=== PATIENT | female | born 2000 | race Caucasian/White ===

== ENCOUNTER 2019-12-15 18:26 | Emergency (ER) | payer OTHER, SELFPAY ==
[2019-12-15 18:31] VITALS: BP 133/61; PULSE 83; RESP 14; TEMP 36.9; O2SAT 97
--- NOTE | 2019-12-15 18:37 | ECG_ITS ---
Measurements Intervals [place] Rate: 74 P: 16 MT: 156 QRS: 10 QRSD: 92 T: 24 QT: 385 QTc: 430 Interpretive Statements SINUS RHYTHM WITH SINUS ARRHYTHMIA VOLTAGE CRITERIA FOR LVH BORDERLINE ECG Electronically Signed On 12-15-2019 19:56:48 CDT by Zay Sandoval D.O.
--- NOTE | 2019-12-15 19:09 | ED.DIZZY ---
HPI - Dizziness General Chief Complaint: Dizziness Stated Complaint: dizziness/headache/vomiting Time Seen by Provider: 12/15/19 18:56 History of Present Illness HPI Narrative: Patient is a 19-year-old female who presents to the ER with dizziness. Patient reports she experiences this about twice a year since she was a freshman in high school. Today patient was getting out of the car and walking towards her apartment when she developed extreme dizziness with nausea and sweats. She felt off balance. Typically symptoms only last for a minute but this was much more sustained. She experienced nausea and vomiting. Symptoms have since resolved and she is developed a frontal headache that is moved over her left eye and is throbbing. Patient reports that symptoms typically are followed by headache. No trauma. Denies fever/chills//tinnitus/ear pressure. Reports items in her visual field removing when she was dizzy. Has had a cardiac work-up in the past that was sent unremarkable. Related Data Home Medications Medication Instructions Recorded Confirmed fluoxetine 40 mg PO DAILY 12/15/19 levothyroxine 25 mcg PO DAILY 12/15/19 metformin 500 mg PO BID 12/15/19 Allergies Allergy/AdvReac Type Severity Reaction Status Date / Time Penicillins Allergy Severe Swelling Verified 12/15/19 18:35 Review of Systems Review of Systems: All systems reviewed & are unremarkable except as noted in HPI and below Constitutional: Constitutional: Denies chills and Denies fever(s) Eyes: Eyes: Reports change in vision (Moving in visual field) and Reports photophobia ENT: Reports dizziness, Denies nasal congestion and Denies sore throat Cardiovascular: Cardiovascular: Denies chest pain and Denies rapid heart rate Gastrointestinal: Gastrointestinal: Denies abdominal pain, Reports nausea and Reports vomiting Neurologic: Reports headache(s), Denies focal weakness and Denies numbness PMFSH Past Medical History Medical History (Updated 12/15/19 @ 20:25 by Iam Trent MD) Anxiety Hypothyroidism PCOS (polycystic ovarian syndrome) Surgical History Surgical History (Updated 12/15/19 @ 19:13 by Iam Trent MD) History of tonsillectomy Social History Social History (Updated 12/15/19 @ 19:13 by Iam Trent MD) Smoking status: Never smoker Alcohol intake: never Substance use: never Exam Narrative: Exam Narrative: GENERAL: Well-appearing, well-nourished, and in no acute distress. HEAD: Normocephalic, atraumatic. EYES: PERRL and EOMI. ENT: TMs normal in appearance and no cerumen in the ear canal. Normal external ear. CHEST: Clear to auscultation. No respiratory distress. HEART: Regular rate and rhythm. Normal peripheral pulses. NEURO: No focal deficits. Clear speech. Alert and oriented x3. PSYCH: Normal mood and affect. Course Course Emergency Course: GONZALES resolved with toradol/reglan/benadryl, hydrated. D/c. Vital Signs Vital signs: Vital Signs Temperature 98.5 F 12/15/19 18:31 Pulse Rate 83 12/15/19 18:31 Respiratory Rate 14 12/15/19 18:31 Blood Pressure 133/61 12/15/19 18:31 Pulse Oximetry 97 12/15/19 18:31 Temperature 98.5 F 12/15/19 18:31 Pulse Rate 102 H 12/15/19 19:37 Respiratory Rate 16 12/15/19 19:27 Blood Pressure 137/116 H 12/15/19 19:37 Pulse Oximetry 97 12/15/19 19:27 MDM - Dizziness Lab Data Result diagrams: 12/15/19 19:20 12/15/19 19:20 Labs: Lab Results 12/15/19 12/15/19 Range/Units 19:20 19:20 WBC 12.8 H (4.5-10.0) K/mm3 RBC 5.24 (4.2-5.4) M/mm3 Hgb 12.7 (12.0-15.0) g/dL Hct 40.1 (37.0-47.0) % MCV 76.5 L (80-100) fl MCH 24.2 L (26-34) pg MCHC 31.7 L (32-36) g/dl RDW 15.1 H (11.5-14.5) % Plt Count 362 (150-375) k/mm3 MPV 8.8 (7.4-10.4) fl Immature Gran % (Auto) 0.2 (0-0.5) % Neut % (Auto) 71.6 (45.5-73.1) % Lymph % (Auto) 22.3 (18.3-44.2) % [place] % (A
[2019-12-15] MEDS: METOCLOPRAMIDE HCL INJ 10 MG/2 ML VIAL IV PUSH (19:24)
[2019-12-15] MEDS: KETOROLAC 30 MG/ML VIAL (*BKC) IV PUSH (19:24)
[2019-12-15] MEDS: SODIUM CHLORIDE 0.9% IV 1,000 ML 999 ML IV CONT (19:24)
[2019-12-15 19:25] LABS: Basophils Absolute Auto 0.1 K/mm3 (0.0-0.1); Basophils Percent Auto 0.4 % (0.2-1.2); Eosinophils Absolute Auto 0.1 K/mm3 (0-0.3); Eosinophils Percent Auto 1.1 % (0-4.4); Hematocrit 40.1 % (37.0-47.0); Hemoglobin 12.7 g/dL (12.0-15.0); Immature Granulocyte Absolute 0.03 K/mm3 (0.00-0.031); Immature Granulocyte Percent A 0.2 % (0-0.5); Lymphocytes Absolute Auto 2.86 K/mm3 (0.9-3.2); Lymphocytes Percent Auto 22.3 % (18.3-44.2); Mean Corpuscular HGB Conc 31.7 g/dl (32-36); Mean Corpuscular Hemoglobin 24.2 pg (26-34); Mean Corpuscular Volume 76.5 fl (80-100); Mean Platelet Volume 8.8 fl (7.4-10.4); Monocytes Absolute Auto 0.6 K/mm3 (0.1-0.6); Monocytes Percent Auto 4.4 % (2.6-8.5); Neutrophils Absolute Auto 9.2 K/mm3 (1.3-6.7); Neutrophils Percent Auto 71.6 % (45.5-73.1); Platelet Count Result 362 k/mm3 (150-375); Red Blood Count 5.24 M/mm3 (4.2-5.4); Red Cell Distribution Width 15.1 % (11.5-14.5); White Blood Count 12.8 K/mm3 (4.5-10.0)
[2019-12-15] MEDS: diphenhydrAMINE HCl INJ 50 MG/ML VIAL 25 MG IV PUSH (19:25)
[2019-12-15 19:27] VITALS: BP 131/89; PULSE 91; RESP 16; O2SAT 97
[2019-12-15 19:36] VITALS: BP 112/75; PULSE 64
[2019-12-15 19:36] LABS: Anion Gap 10 mmol/L (8-16); Blood Urea Nitrogen 9 mg/dL (7-17); Calcium 9.3 mg/dL (8.4-10.2); Carbon Dioxide 25 mmol/L (22-30); Chloride 103 mmol/L (98-107); Estimated CRCL calculation 138 ml/min; Estimated Glomerular Filt Rate > 60; Glucose 101 mg/dL (65-105); Potassium 3.9 mmol/L (3.4-5.0); Sodium 138 mmol/L (137-145)
[2019-12-15 19:37] VITALS: BP 132/75; BP 137/116; PULSE 102; PULSE 78
[2019-12-15 21:01] VITALS: BP 123/66; PULSE 73; RESP 16; TEMP 36.8; O2SAT 98
== END 2019-12-15 21:02 | disposition home or self-care (01) ==
PROVIDERS: Emergency Provider Emergency Medicine
DX: R42 Dizziness and giddiness (principal); R51 Headache; F41.9 Anxiety disorder, unspecified; E03.9 Hypothyroidism, unspecified; E28.2 Polycystic ovarian syndrome; R94.31 Abnormal electrocardiogram [ECG] [EKG]
CPT/HCPCS: 36415; 80048; 85025; 93005; 96361; 96374; 96375; 99284; J1200; J1885; J2765; J7030